=== PATIENT | female | born 1970 | race Caucasian/White ===

== ENCOUNTER 2021-01-25 17:13 | Emergency (ER) | payer BC ==
[~2021-01-25] VITALS: Ht 165.1 cm; Wt 52.6 kg
--- NOTE | 2021-01-25 17:36 | NUR ---
The patient bibs for c/o forehead pain s/p fall while using her computer last night,-ko,forehead, bump and left eye bruise. the patient rates pain 2/10.The patient is alert and oriented x4. In room air and denies SOB. Respiration regular and unlabored. The patient is provided with a blanket. Will continue to monitor.
--- NOTE | 2021-01-25 18:39 | NUR ---
Patient discharged to home in stable condition. Written and verbal after care instructions given. Patient verbalizes understanding of instruction. The patient left ER in stable condition
[2021-01-25 18:40] VITALS: BP 116/65
== END 2021-01-25 18:40 | disposition home or self-care (01) ==
LOC: ER 17:23
DX: S00.83XA Contusion of other part of head, initial encounter (principal); M54.2 Cervicalgia; F32.9 Major depressive disorder, single episode, unspecified; F41.9 Anxiety disorder, unspecified; Z98.890 Other specified postprocedural states; W19.XXXA Unspecified fall, initial encounter; Y93.89 Activity, other specified; Y92.89 Other specified places as the place of occurrence of the external cause; Y99.8 Other external cause status
CPT/HCPCS: 70450-TC; 70486-TC; 72125-TC

== ENCOUNTER 2023-04-08 13:22 | Emergency (ER) | payer BC ==
[~2023-04-08] VITALS: Ht 165.1 cm; Wt 52.2 kg
--- NOTE | 2023-04-08 14:25 | NUR ---
urine collected and sent to lab
[2023-04-08] MEDS ORDERED: KETOROLAC TROMETHAMINE INJ 30 MG/ML VIAL ONE (14:54)
--- NOTE | 2023-04-08 14:55 | NUR ---
iv estalbished. 20G LAC
--- NOTE | 2023-04-08 14:55 | NUR ---
blood drawn and sent to lab
[2023-04-08] MEDS ORDERED: KETOROLAC TROMETHAMINE INJ 30 MG/ML VIAL IV ONE (15:00)
[2023-04-08 15:34] LABS: BASOPHILS # (AUTO) 0.1 K/uL (0.0-0.2); BASOPHILS % (AUTO) 1.4 % (0.0-2.0); HEMATOCRIT 34 % (33-45); HEMOGLOBIN 11.3 g/dL (11.5-14.8); LYMPHOCYTES # (AUTO) 1.8 K/uL (0.8-4.8); LYMPHOCYTES % (AUTO) 29.5 % (20.0-44.0); MEAN CORPUSCULAR HGB CONC 33 g/dl (31.0-36.0); MEAN CORPUSCULAR VOLUME 95 fL (82-100); MONOCYTES # (AUTO) 0.4 K/uL (0.1-1.30); MONOCYTES % (AUTO) 6.9 % (2.0-12.0); NEUTROPHILS # (AUTO) 3.6 K/uL (1.8-8.9); NEUTROPHILS % (AUTO) 58.2 % (43.0-81.0); PLATELET COUNT (AUTO) 273 K/uL (150-450); RED BLOOD CELL COUNT(AUTO) 3.61 MIL/uL (4.0-5.2); WHITE BLOOD COUNT (AUTO) 6.1 K/uL (4.3-11.0)
[2023-04-08] MEDS ORDERED: DIAZEPAM 5 MG TABLET ONE (15:51)
[2023-04-08 15:55] LABS: CALCIUM, SERUM 9.3 mg/dL (8.5-10.1); CREATININE 0.7 mg/dL (0.6-1.3); POTASSIUM 4.5 mmol/L (3.5-5.1)
[2023-04-08] MEDS ORDERED: DIAZEPAM 5 MG TABLET PO ONE (16:00)
[2023-04-08 16:13] LABS: BILIRUBIN,URINE NEGATIVE (NEGATIVE); COLOR,URINE YELLOW (YELLOW); LEUKOCYTE ESTERASE ,URINE TRACE (NEGATIVE); NITRITE, URINE NEGATIVE (NEGATIVE); PROTEIN,URINE NEGATIVE (NEGATIVE); UGLUCOSE NEGATIVE (NEGATIVE); UROBILINOGEN,URINE 0.2 EU/dL (0.2)
[2023-04-08 16:17] LABS: BACTERIA,URINE None seen /HPF (None Seen); RBC,URINE 0-2 /HPF (0-2)
[2023-04-08] MEDS ORDERED: MORPHINE SULFATE INJ 4 MG/ML DISP.SYRIN ONE (16:50)
[2023-04-08] MEDS ORDERED: MORPHINE SULFATE INJ 2 MG/ML DISP.SYRIN IM ONE (17:00)
[2023-04-08] MEDS ORDERED: PRED50TA PO (17:36)
[2023-04-08] MEDS ORDERED: METH-647 PO (17:36)
[2023-04-08] MEDS ORDERED: LIDO30AD10 TP (17:36)
[2023-04-08] MEDS ORDERED: OXYC-117 PO (17:36)
--- NOTE | 2023-04-08 17:56 | NUR ---
Patient discharged to home in stable condition, ambulating. Written and verbal after care instructions given. Patient verbalizes understanding of instruction.
[2023-04-08 17:57] VITALS: BP 109/69
== END 2023-04-08 17:58 | disposition home or self-care (01) ==
LOC: ER 13:30
DX: M62.830 Muscle spasm of back (principal); M54.50 Low back pain, unspecified; F32.A Depression, unspecified; Z60.2 Problems related to living alone
CPT/HCPCS: 99285; 96374; 72131; 85025; 80048; 87086; 81001; 36415; 96372; J2270; J1885